=== PATIENT | male | born 1950 | race Caucasian/White ===

== ENCOUNTER 2018-12-08 22:53 | Inpatient (IN) | payer MEDICARE, OTHER ==
[~2018-12-08] VITALS: Ht 170.2 cm; Wt 68.0 kg
--- NOTE | 2018-12-08 23:04 | NUR ---
TO BED 14 [facility] FOR MEDICAL CLEARANCE. PT REPORTS SI WITH PLAN TO CUT SELF. PT STAB SELF IN RFA ON Nov. PT AAOX4 NO ACUTE DISTRESS NOTED, RESP EVEN AND UNLABORED. PT CALM AND COOPERATIVE AT THIS TIME. ER MD AT BEDSIDE TO EVAL PT. PLACE PT ON HOSPITAL GOWN, ALL BELONGIGNS REMOVED. WILL MONITOR PT CLOSELY.
[2018-12-08 23:26] LABS: BASOPHILS % (AUTO) 0.8 % (0.0-2.0); EOSINOPHILS % (AUTO) 0.9 % (0.0-6.0); HEMATOCRIT 34 % (39-51); HEMOGLOBIN 11.5 g/dL (13.5-17.5); LYMPHOCYTES # (AUTO) 0.9 /CMM (0.8-4.8); LYMPHOCYTES % (AUTO) 18.5 % (20.0-44.0); MEAN CORPUSCULAR HGB CONC 34 g/dl (31.0-36.0); MEAN CORPUSCULAR VOLUME 92 fL (80-96); MONOCYTES # (AUTO) 0.4 /CMM (0.1-1.30); MONOCYTES % (AUTO) 8.1 % (2.0-12.0); NEUTROPHILS # (AUTO) 3.6 /CMM (1.8-8.9); NEUTROPHILS % (AUTO) 71.7 % (43.0-81.0); PLATELET COUNT (AUTO) 338 /CMM (150-450); RED BLOOD CELL COUNT(AUTO) 3.68 MIL/uL (4.5-6.0)
[2018-12-08 23:32] LABS: CALCIUM, SERUM 8.5 mg/dL (8.5-10.1); CARBON DIOXIDE 24 mmol/L (21-32); CHLORIDE 99 mmol/L (98-107); CREATININE 0.9 mg/dL (0.6-1.3); GLUCOSE 123 mg/dL (74-106); POTASSIUM 4.1 mmol/L (3.5-5.1); SODIUM SERUM 134 mmol/L (136-145); UREA NITROGEN, BLOOD 11 mg/dL (7-18)
[2018-12-08 23:38] LABS: ALANINE AMINOTRANSFERASE 102 U/L (12-78); ALBUMIN 3.9 g/dL (3.4-5.0); ALKALINE PHOSPHATASE 135 U/L (46-116); ASPARTATE AMINOTRANSFERASE 26 U/L (15-37); BILIRUBIN,DIRECT 0.1 mg/dL (0.0-0.2); BILIRUBIN,TOTAL 0.4 mg/dL (0.2-1.0)
[2018-12-08 23:40] LABS: ACETAMINOPHEN 0 ug/ml (10-30); ALCOHOL, BLOOD < 3 mg/dL (0-0); SALICYLATE 1.1 mg/dL (2.8-20.0)
[2018-12-08 23:59] LABS: APPEARANCE,URINE Clear (CLEAR); BILIRUBIN,URINE Negative (NEGATIVE); BLOOD, URINE Negative Ery/uL (NEGATIVE); COLOR,URINE Yellow (YELLOW); KETONES,URINE 15 (NEGATIVE); LEUKOCYTE ESTERASE ,URINE Negative (NEGATIVE); NITRITE, URINE Negative (NEGATIVE); PROTEIN,URINE Negative (NEGATIVE); UGLUCOSE Negative (NEGATIVE); UROBILINOGEN,URINE 0.2 EU/dL (0.2)
[2018-12-09] MEDS ORDERED: METF-442 PO (00:16)
[2018-12-09] MEDS ORDERED: GLIP5TAB13 PO (00:16)
[2018-12-09] MEDS ORDERED: TERA5CAP4 PO (00:16)
[2018-12-09] MEDS ORDERED: FLUO10CA26 PO (00:16)
[2018-12-09] MEDS ORDERED: MULT1TAB73 PO (00:16)
[2018-12-09] MEDS ORDERED: ATOR20TA PO (00:16)
[2018-12-09] MEDS ORDERED: ASPI-605 PO (00:16)
[2018-12-09] MEDS ORDERED: TRAZ-182 PO (00:16)
[2018-12-09] MEDS ORDERED: BENA20TA78 PO (00:16)
[2018-12-09] MEDS ORDERED: HYDR50CA PO (00:16)
--- NOTE | 2018-12-09 00:16 | NUR ---
pt resting quietly, no acute distress noted, resp even and unlabored. call light iwthilisha reach. will continue to monitor pt closely.
[2018-12-09 00:17] LABS: BACTERIA,URINE Few /HPF (None Seen); SQUAMOUS EPITHELIAL CELL,UR Rare /HPF (None Seen); WBC,URINE 0-2 /HPF (0-3)
--- NOTE | 2018-12-09 00:56 | NUR ---
CHRISTAL RINALDIW AT BEDSIDE TO EVAL PT. PT REMAINS CALM AND COOPERATIVE AT THIS TIME.
--- NOTE | 2018-12-09 01:45 | NUR ---
ART TRUCK BENCH MECHANIC AT BEDSIDE FOR EVAL.
--- NOTE | 2018-12-09 02:11 | NUR ---
PT TRANSFERED TO [facility] VIA WHEELCHAIR.
[2018-12-09] MEDS ORDERED: MAGNESIUM HYDROXIDE 30 ML UDC PO PRN (03:00)
[2018-12-09] MEDS ORDERED: ZOLPIDEM TARTRATE 5 MG TABLET PO PRN (03:00)
[2018-12-09] MEDS ORDERED: ACETAMINOPHEN 325 MG TABLET PO PRN (03:00)
[2018-12-09] MEDS ORDERED: BLOOD SUGAR DIAGNOSTIC 1 EACH STRIP IN ONE (03:00)
[2018-12-09] MEDS ORDERED: MAG HYDROX/AL HYDROX/SIMETH 30 ML UDC PO PRN (03:00)
[2018-12-09] MEDS: LORAZEPAM 1 MG TABLET PO PRN ×2 (03:04→21:33)
[2018-12-09 03:38] VITALS: BP 112/67
--- NOTE | 2018-12-09 04:00 | NUR ---
GPS RN NOTES :RADHA AL MADE AWRE OF NEW ADMISSION MED RECON.
--- NOTE | 2018-12-09 04:04 | NUR ---
ADMISSION NOTES: ADMITTED THIS 67Y/O MALE PATIENT ADMIT FROM [facility] ER/INTIALLY FROM [facility] , PT IS ON 5150 HOLD DANGER TO SELF, AND ISOLATIVE HIM SELF FROM OTHERS AND VERBALIZEING SI , UPON FACE TO FACE ASSESSMENT PATIENT IS A&O X ,2 DISORGNIZED, DEPESSED, ANXIOUS, FEELING SI, BUT NO PLAN AT THIS TIME , UNCOOPERTIVE ,EASILY GETS AGITATED, PT. IS POOR HISTORIAN, POOR INSIGHT ,POOR JUDGEMENT , POOR HYGINE , PT. REFUSED TO TAKE SHOWER AT THIS TIME , AND PT. REFUSED TO SIGN ADMISSION PAPERS ,PT. REFUSED TO SKIN ASSESSMENT , PER PT. MY SKIN IS INTACT, AND REFUSED PICTURES, PT. V/S MD GRABIEL AWARE AND NOTIFIED OF THE ADMISSION, BELONGINGS CONTRABAND WERE DONE , NURSING ASSESSMENT DONE ,PT. RIGHTS DISCUSS BY DRY TALC RACKER , PROVIDE THE PT. WITH HANDBOOK, AND MEDICATIONS GUIDE, ENVIRONMENTAL SAFETY CHECK DONE, ENCOURAGED PT. VERBALIZED ANY FEELING CONCERN TO STAFF, ORIENT TO UNIT POLICY, NO ACUTE DISTRESS NOTED,VITAL SIGNS WNL ,DENIES ANY PAIN AT THIS TIME ,WILL CONTINUE TO MONITOR FOR Q15 SAFETY AND BEHAVIOR.
--- NOTE | 2018-12-09 04:07 | NUR ---
ADMISSION NOTES: ADMITTED THIS 68Y/O MALE, PATIENT ADMIT FROM [facility] ER/INTIALLY FROM [facility] , PT IS ON 5150 HOLD DANGER TO SELF, PT. STABBED HIMSELF MULTIPLE TIMES, PT. ENDED UP WITH LEFT WRIST MEDIAN ,RIGHT HAND, ABDOMEN ,PT. REPORT SI PAST 2 WEEKS, PLAN TO CUT HIMSELF, UPON FACE TO FACE ASSESSMENT PATIENT IS A&O X ,3 , DEPESSED, ANXIOUS, COOPERTIVE, DENIES SI /HI AT THIS TIME , PT. IS POOR HISTORIAN, POOR INSIGHT ,POOR JUDGEMENT , PT. REFUSED TO TAKE SHOWER AT THIS TIME , AND PT. REFUSED TO SIGN ADMISSION PAPERS, DUE TO MENTAL STATUS ,PT. REFUSED SKIN ASSESSMENT , PT. ALLOWED ONLY VISUAL CHECK, LEFT ARM ON CAST, RIGHT HAND AND ABDOMEN BANDAGES ON IT, BUT PT. REFUSED TO REMOVED BANDAGES DUE TO DISCOMFORTS , PER PT. I STAB MYSELF ON November, PT. ALLOWED ONLY PICTURES TAKEN WITH BANDAGES, PT. V/S WNJosi , AWARE AND NOTIFIED OF THE ADMISSION, BELONGINGS CONTRABAND WERE DONE , NURSING ASSESSMENT DONE ,PT. RIGHTS DISCUSS BY CAR GREASER , PROVIDE THE PT. WITH HANDBOOK, AND MEDICATIONS GUIDE, ENVIRONMENTAL SAFETY CHECK DONE, ENCOURAGED PT. VERBALIZED ANY FEELING CONCERN TO STAFF, ORIENT TO UNIT POLICY, NO ACUTE DISTRESS NOTED,VITAL SIGNS WNL ,DENIES ANY PAIN AT THIS TIME ,WILL CONTINUE TO MONITOR FOR Q15 SAFETY AND BEHAVIOR.
--- NOTE | 2018-12-09 05:52 | NUR ---
GPS RN NOTES: PT. REFUSED THOROUGHLY SKIN ASSESSMENT, VISUAL CHECK, PT. PERMIT PICTURES TAKEN WITH BANDAGES, WOUND CONSULT ORDERS.
--- NOTE | 2018-12-09 06:45 | NUR ---
GPS RN NOTES: PLACE CALLED OFELIA ORTIZ LEFT MESSAGES AT # [phone] .
[2018-12-09] MEDS ORDERED: ACET-868 PO (07:55)
[2018-12-09] MEDS ORDERED: MAG30ORA PO (07:55)
[2018-12-09] MEDS ORDERED: DOCU250C14 PO (07:55)
[2018-12-09] MEDS ORDERED: MAGN400O6 PO (07:55)
[2018-12-09] MEDS ORDERED: BLOO-668 IN (07:55)
[2018-12-09 08:00] VITALS: BP 129/71
--- NOTE | 2018-12-09 13:00 | NUR ---
RN NOTE: MIKAELA RUSS AWARE OF PATIENT'S ADMISSION AND WILL REVIEW MED RECON.
--- NOTE | 2018-12-09 13:14 | NUR ---
CAMILO contacted pts son Cricket [phone] for collateral information and discharge planning. Per son, he stated that pt has been hospitalized since 11/24/18 and stated that pt will be discharged to one of his brother's house and also would be interested in short term SNF placement. Per son, he stated he is not sure what caused pts depression and why he attempted suicide and stated that the only thing he could relate it to is that pt had been complaining of a lot of pain in his genital area and therefore was tired of the pain and attempted suicide. Son mentioned that this is pts first suicide attempt and the first time he has ever been in a psychiatric hospital.
[2018-12-09] MEDS: Fluoxetine 10 mg capsule PO SCH (14:21)
[2018-12-09 16:06] VITALS: BP 126/75
[2018-12-09] MEDS: METFORMIN 500 MG TABLET PO SCH (17:49)
[2018-12-09 20:31] VITALS: BP 113/66
[2018-12-09] MEDS: TRAZODONE 50 MG TABLET PO SCH (21:34)
[2018-12-09] MEDS: TERAZOSIN HCL 5 MG CAPSULE PO SCH (21:34)
[2018-12-09] MEDS: DOCUSATE SODIUM 250 MG CAPSULE PO SCH (21:34)
[2018-12-09 23:15] VITALS: BP 129/71
[2018-12-10 07:17] LABS: HEMATOCRIT 33 % (39-51); HEMOGLOBIN 11.1 g/dL (13.5-17.5); LYMPHOCYTES # (AUTO) 0.8 /CMM (0.8-4.8); LYMPHOCYTES % (AUTO) 24.4 % (20.0-44.0); MEAN CORPUSCULAR HGB CONC 34 g/dl (31.0-36.0); MEAN CORPUSCULAR VOLUME 92 fL (80-96); MONOCYTES # (AUTO) 0.3 /CMM (0.1-1.30); MONOCYTES % (AUTO) 10.4 % (2.0-12.0); NEUTROPHILS % (AUTO) 62.2 % (43.0-81.0); PLATELET COUNT (AUTO) 343 /CMM (150-450); RED BLOOD CELL COUNT(AUTO) 3.57 MIL/uL (4.5-6.0); WHITE BLOOD COUNT (AUTO) 3.3 K/uL (4.3-11.0)
[2018-12-10 07:30] LABS: CALCIUM, SERUM 8.4 mg/dL (8.5-10.1); CREATININE 0.6 mg/dL (0.6-1.3); POTASSIUM 4.2 mmol/L (3.5-5.1)
[2018-12-10 08:00] VITALS: BP 100/64
[2018-12-10] MEDS: DOCUSATE SODIUM 250 MG CAPSULE PO SCH ×2 (08:24→21:03)
[2018-12-10] MEDS: glipiZIDE 5 MG TABLET PO SCH (08:24)
[2018-12-10] MEDS: ASPIRIN EC 81 MG TABLET.DR PO SCH (08:24)
[2018-12-10] MEDS: METFORMIN 500 MG TABLET PO SCH ×2 (08:24→16:42)
[2018-12-10] MEDS: Fluoxetine 10 mg capsule PO SCH (08:24)
[2018-12-10] MEDS: MULTIVITAMINS,THERAGRAN 1 UDTAB TABLET PO SCH (08:24)
[2018-12-10] MEDS: BENAZEPRIL HCL 20 MG TABLET PO SCH (08:34)
--- NOTE | 2018-12-10 08:34 | NUR ---
RN NOTE: 0900 BP MED HELD D/T BP 100/64
--- NOTE | 2018-12-10 09:22 | NUR ---
INITIAL DISCHARGE PLAN: Patient wishes to be discharged to one of his brother's home. The address will be provided closer to discharge as pt still does not know which brother's home he will be discharging to. Per sonCricket [phone] pt will not return to his previous residence. SW will help form a safe and proper discharge in collaboration with .
[2018-12-10 09:56] LABS: ALBUMIN 3.6 g/dL (3.4-5.0); BILIRUBIN,DIRECT 0.1 mg/dL (0.0-0.2); BILIRUBIN,TOTAL 0.4 mg/dL (0.2-1.0); TOTAL PROTEIN, SERUM 6.1 g/dL (6.4-8.2)
--- NOTE | 2018-12-10 10:04 | NUR ---
WOUND CONSULT LATE ENTRY FOR 12/09/18 PATIENT WAS SEEN AND LEFT HAND/WRIST/FOREARM IN SPLINT CAST. PATIENT RIGHT HAND WITH SELF INFLICTED WOUND AND RIGHT UPPER ABDOMEN WITH SELF INFLICTED WOUND. TREATMENT RECOMMENDATIONS MADE. ALL DISCUSSED WITH NURSING AT THE BEDSIDE. PATIENT AND HIS SON DECLINED TO HAVE SURGEON CONSULT FOR THE LEFT HAND. HE AND HIS SON HAVE MADE AN APPOINT WITH HIS SURGEON AT [facility] FOR FOLLOW UP. WILL SEE PRN.
--- NOTE | 2018-12-10 10:30 | NUR ---
CAMILO received a call from pts bhavna Walker [phone] requesting discharge information, SW informed him that psychiatrist has placed discharge order for Friday12/16/18. Son asked SW if he was able to make decisions on behalf of pt regarding his discharge. SW informed son that if pt wishes for him to make decisions on behalf of him then he is able to, SW also informed him that SW nor psychiatrist can force pt to be discharged to a SNF if pt does not want to. SW informed son that pt has the right to make his own decisions. Son stated that pt wishes to be discharged to his his brother's home and also stated that he wishes to receive resources for in home support services. CAMLIO informed him that she would email him a list of resources for caregiving and home health. Son agreed. CAMILO also informed son that pt will be scheduled for a probable cause hearing which will allow pt to contest his hold, SW educated son on Probable Hearing.
--- NOTE | 2018-12-10 13:02 | NUR ---
SUPPORTIVE COUNSELING: SW met with pt and discussed his discharge plan and also discussed his sons wish to have him discharged to a SNF. Pt stated that he does not give his sons the permission to make decisions on behalf of him and that he does not want to be discharged to a SNF. Pt stated that he wants to be with his family and that he feels he would benefit more from the love of his family than being in another facility. Pt stated that he wanted SW to make it very clear to his children that he has rights and that he was able to make decisions on his own regarding his discharge and plan of care. Pt also expressed remorse and guilt surrounding his suicide attempt and stated that he would never do it again. SW educated pt on is probable cause hearing and informed him that he has the right to contest his 14 day hold. Pt stated that he feels he does not need to be here until Friday12/16/18 as denied suicidal ideation and stated that he wishes to contest his hold when the time comes. SW stated that she would inform him when his PC hearing is scheduled.
--- NOTE | 2018-12-10 15:52 | NUR ---
GROUP NOTE: SW prompted pt to participate in group session on this present day discussing "treatment compliance." Pt stated that he is complaint with his treatment and medications and that he had already spoken with psychologist Dr. Mckee and wanted to remain in his room to rest. SW provided intervention earlier today regarding pts depression and suicide attempt.
[2018-12-10 16:00] VITALS: BP 101/58
--- NOTE | 2018-12-10 16:27 | NUR ---
CAMILO emailed the following to pts son Aaron at [email or web address]: "Cruz Walker, Here are some resources that may be helpful for your Father. 1.[facility] Address: [address], [place] [address] 2.In-Home Supportive Services ([facility]) [email or web address]/[email or web address]/[email or web address]/[email or web address]/main/txclwdnd-zid-ckblbomd/xs-eukf-uuehlktkml-servi [place] 3.[facility] Address: [address] [place] [address] Hope this helps, as I mentioned earlier he does have a discharge date for November,. However, there is a strong possibility that he will be scheduled for a Probable Cause Hearing before that date and may be released earlier by the court. When a patient is hospitalized in a psychiatric hospital against his or her will, he or she is placed on a 72 hour hold ([facility] 5150). At the end of the 72 hours or any time during the 72 hours, the doctor may decide to discharge the patient, have the patient sign into the hospital as a voluntary patient, or place the patient on a 14 day hold ([facility] 5250) (which your father is currently on). The doctor may place the patient on a 14 day hold if he or she feels the patient is a danger to self, danger to others, or gravely disabled (unable to provide food, clothing or senior care) due to a mental disorder. Within the first four days of the 14 day hold, a Probable Cause Hearing is scheduled at the psychiatric facility. At the probable cause hearing, present are a Patients' Rights Advocate who is there to help the patient, me to present information on behalf of the facility, and the Mental Health Hearing Referee. It is the responsibility of the Patients' Rights Advocate to present the patient's point of view. It is the job of the advocate to attempt to gain the patient's release from the hospital if the patient desires release, even if the release may not be in the patient's best interest. This is the advocate's job no matter what they feel personally. If the Mental Health Hearing Referee determines that there is probable cause for the patient to remain in the hospital based upon one or more of the certification criteria, he or she will inform the patient of this decision and the reasons for it but if the referee does not find probable cause then he will be released on that same day if he no longer wants to be hospitalized and sign voluntary admission. I will inform you of when this hearing is scheduled and if your father wishes you and your siblings may also attend."
[2018-12-10 20:00] VITALS: BP 106/64
[2018-12-10] MEDS: TRAZODONE 50 MG TABLET PO SCH (21:03)
[2018-12-10] MEDS: TERAZOSIN HCL 5 MG CAPSULE PO SCH (21:04)
[2018-12-11 08:00] VITALS: BP 107/63
[2018-12-11] MEDS: DOCUSATE SODIUM 250 MG CAPSULE PO SCH ×2 (08:18→21:27)
[2018-12-11] MEDS: ASPIRIN EC 81 MG TABLET.DR PO SCH (08:18)
[2018-12-11] MEDS: MULTIVITAMINS,THERAGRAN 1 UDTAB TABLET PO SCH (08:18)
[2018-12-11] MEDS: glipiZIDE 5 MG TABLET PO SCH (08:18)
[2018-12-11] MEDS: Fluoxetine 10 mg capsule PO SCH (08:18)
[2018-12-11] MEDS: METFORMIN 500 MG TABLET PO SCH ×2 (08:18→16:38)
[2018-12-11] MEDS: BENAZEPRIL HCL 20 MG TABLET PO SCH (08:19)
[2018-12-11] MEDS ORDERED: NEOMY SULF/BACITRAC ZN/POLY 15 GM TUBE TP PRN (11:00)
[2018-12-11] MEDS: FLUTICASONE PROPIONATE 16 GM BOTTLE NS SCH (14:49)
--- NOTE | 2018-12-11 15:00 | NUR ---
GROUP NOTE: CAMILO prompted pt to participate in group session on this present day discussing "discharge planning." Pt stated that he wanted to stay in his room as there is a black man who has been pacing the halls and he feels anxious around him. CAMILO provided an intervention and informed pt that it was important for him to socialize with others and participate in group milieu. Pt understood but stated that he is too old to attend groups and feels safer in his room. CAMILO also informed him that he is scheduled for a PC hearing on Friday12/14/18 and asked him if she wanted his sons to attend. Pt stated that it was not necessary for them to attend as he can represent himself and make his own decisions without them.
--- NOTE | 2018-12-11 15:09 | NUR ---
CAMILO contacted pts bhavna Walker [phone] to inform him pts PC hearing is scheduled for Friday12/14/18 and mentioned that pt does not want him to attend. Son stated that pt cannot make decision on his own and that he needed to consult with him or his brothers before making decisions. SW explained that pt has rights and if he wishes for them to not be present then they cannot attend the hearing. Son stated that he will speak to pt and call SW back.
[2018-12-11 16:00] VITALS: BP 122/80
--- NOTE | 2018-12-11 16:09 | NUR ---
Pt informed SW that he wishes for his son Aaron to be present at the probable cause hearing.
--- NOTE | 2018-12-11 16:10 | NUR ---
CAMILO contacted pts bhavna Walker [phone] and left a voicemail informing him pt wishes for him to attend the PC hearing.
[2018-12-11 20:00] VITALS: BP 101/56
[2018-12-11] MEDS: TRAZODONE 50 MG TABLET PO SCH (21:27)
[2018-12-11] MEDS: TERAZOSIN HCL 5 MG CAPSULE PO SCH (21:28)
[2018-12-11] MEDS: LORAZEPAM 1 MG TABLET PO PRN (23:00)
[2018-12-12 08:00] VITALS: BP 102/73
[2018-12-12] MEDS: METFORMIN 500 MG TABLET PO SCH ×2 (08:10→16:31)
[2018-12-12] MEDS: MULTIVITAMINS,THERAGRAN 1 UDTAB TABLET PO SCH (08:10)
[2018-12-12] MEDS: glipiZIDE 5 MG TABLET PO SCH (08:10)
[2018-12-12] MEDS: Fluoxetine 10 mg capsule PO SCH (08:10)
[2018-12-12] MEDS: DOCUSATE SODIUM 250 MG CAPSULE PO SCH ×2 (08:10→21:00)
[2018-12-12] MEDS: ASPIRIN EC 81 MG TABLET.DR PO SCH (08:10)
[2018-12-12] MEDS: BENAZEPRIL HCL 20 MG TABLET PO SCH (08:11)
[2018-12-12] MEDS: FLUTICASONE PROPIONATE 16 GM BOTTLE NS SCH (08:11)
[2018-12-12 16:08] VITALS: BP 124/73
[2018-12-12 20:00] VITALS: BP 120/64
[2018-12-12] MEDS: TRAZODONE 50 MG TABLET PO SCH (21:00)
[2018-12-12] MEDS: LORAZEPAM 1 MG TABLET PO PRN (21:00)
[2018-12-12] MEDS: TERAZOSIN HCL 5 MG CAPSULE PO SCH (21:00)
[2018-12-13 08:00] VITALS: BP 106/59
[2018-12-13] MEDS: BENAZEPRIL HCL 20 MG TABLET PO SCH (08:34)
[2018-12-13] MEDS: DOCUSATE SODIUM 250 MG CAPSULE PO SCH ×2 (08:34→21:00)
[2018-12-13] MEDS: Fluoxetine 10 mg capsule PO SCH (08:34)
[2018-12-13] MEDS: METFORMIN 500 MG TABLET PO SCH ×2 (08:34→16:08)
[2018-12-13] MEDS: ASPIRIN EC 81 MG TABLET.DR PO SCH (08:34)
[2018-12-13] MEDS: MULTIVITAMINS,THERAGRAN 1 UDTAB TABLET PO SCH (08:34)
[2018-12-13] MEDS: glipiZIDE 5 MG TABLET PO SCH (08:34)
[2018-12-13] MEDS: FLUTICASONE PROPIONATE 16 GM BOTTLE NS SCH (08:35)
[2018-12-13 16:00] VITALS: BP 126/76
[2018-12-13 20:14] VITALS: BP 106/61
[2018-12-13] MEDS: LORAZEPAM 1 MG TABLET PO PRN (21:00)
[2018-12-13] MEDS: TERAZOSIN HCL 5 MG CAPSULE PO SCH (21:00)
[2018-12-13] MEDS: TRAZODONE 50 MG TABLET PO SCH (21:00)
[2018-12-14 08:00] VITALS: BP 113/75
[2018-12-14] MEDS: ASPIRIN EC 81 MG TABLET.DR PO SCH (08:29)
[2018-12-14] MEDS: glipiZIDE 5 MG TABLET PO SCH (08:29)
[2018-12-14] MEDS: BENAZEPRIL HCL 20 MG TABLET PO SCH (08:30)
[2018-12-14] MEDS: DOCUSATE SODIUM 250 MG CAPSULE PO SCH ×2 (08:30→21:36)
[2018-12-14] MEDS: Fluoxetine 10 mg capsule PO SCH (08:30)
[2018-12-14] MEDS: MULTIVITAMINS,THERAGRAN 1 UDTAB TABLET PO SCH (08:30)
[2018-12-14] MEDS: METFORMIN 500 MG TABLET PO SCH ×2 (08:30→16:05)
[2018-12-14] MEDS: FLUTICASONE PROPIONATE 16 GM BOTTLE NS SCH (08:32)
--- NOTE | 2018-12-14 14:18 | NUR ---
CAMILO contacted pts bhavna Walker [phone] and informed him the PC adult probation officer had arrived and the hearing will be held earlier. Pts son was upset and stated that he was informed that the PC hearing will be at 4:00pm CAMILO apologized and informed him that often times the adult probation officer and advocate arrived earlier, Pts son stated he would otra over to make sure he made it.
--- NOTE | 2018-12-14 15:55 | NUR ---
Group Note: SW seeked out the pt to participate in group therapy to discuss discharge planning but the pt stated that he was going to attend his PC Hearing with his son.
[2018-12-14 16:00] VITALS: BP 111/52
[2018-12-14 19:58] VITALS: BP 104/61
[2018-12-14] MEDS: LORAZEPAM 1 MG TABLET PO PRN (21:02)
[2018-12-14] MEDS: TRAZODONE 50 MG TABLET PO SCH (21:36)
[2018-12-14] MEDS: TERAZOSIN HCL 5 MG CAPSULE PO SCH (21:36)
[2018-12-15 08:00] VITALS: BP 121/66
[2018-12-15] MEDS: METFORMIN 500 MG TABLET PO SCH (08:29)
[2018-12-15 08:30] VITALS: BP 121/66
[2018-12-15] MEDS: DOCUSATE SODIUM 250 MG CAPSULE PO SCH (08:30)
[2018-12-15] MEDS: BENAZEPRIL HCL 20 MG TABLET PO SCH (08:30)
[2018-12-15] MEDS: Fluoxetine 10 mg capsule PO SCH (08:30)
[2018-12-15] MEDS: ASPIRIN EC 81 MG TABLET.DR PO SCH (08:30)
[2018-12-15] MEDS: MULTIVITAMINS,THERAGRAN 1 UDTAB TABLET PO SCH (08:31)
[2018-12-15] MEDS: glipiZIDE 5 MG TABLET PO SCH (08:31)
[2018-12-15] MEDS: FLUTICASONE PROPIONATE 16 GM BOTTLE NS SCH (08:33)
--- NOTE | 2018-12-15 09:49 | NUR ---
DISCHARGE NOTE: Pt will be discharged at 1130am via private vehicle home to [address] [place] [address]. Pts son Aaron [phone] will pick pt up and transport home. Pt denied suicidal/homicidal ideation and denied visual/auditory hallucinations. Pt has a follow up appointment at [facility] Address: [address] , [place] [address] pn 12/18/18 at 11:00am and with Ostrich Farmer: Dr. Damien Orta MD Address: [address], [place] [address] to remove his stitches on Friday12/18/18 at 3:00pm. The multidisciplinary exitcare form was done, printed, signed, and given to the patient.
--- NOTE | 2018-12-15 11:00 | NUR ---
RN NOTE SEEN BY MELY PAGAN ,UPDATED ABOUT PATIENT CONDITION.GOT ORDER FOR DISCHARGE.PATIENT AND MADE AWARE.
--- NOTE | 2018-12-15 12:00 | NUR ---
RN NOTE RECEIVED DISCHARGE ORDER AND MED RECONCILIATION FROM AND
--- NOTE | 2018-12-15 12:10 | NUR ---
Discahrge note Pt discharged at 1210 via private vehicle home to [id number] [place] [address]. son Aaron [phone] picked up patient from hospital. Pt denied suicidal/homicidal ideation and denied visual/auditory hallucinations. Pt has a follow up appointment at [facility] Address: [address] , [place] [address] pn 12/18/18 at 11:00am and with Dry Sander: Dr. Damien Orta MD Address: [address], [place] [address] to remove his stitches on Friday12/18/18 at 3:00pm. The multidisciplinary exit care done, printed, signed, and given to the patient and son.patient and son verbalized understanding.took all belongings and discharge paperwork.
== END 2018-12-15 12:10 | disposition home or self-care (01) | DRG 885 ==
LOC: ER 22:57 → GPS 12-09 01:41
PROVIDERS: ADMIT Psychiatry & Neurology Psychiatry; ATTEND Nurse Practitioner Acute Care
DX: F33.2 Major depressive disorder, recurrent severe without psychotic features (principal); E87.1 Hypo-osmolality and hyponatremia; I10 Essential (primary) hypertension; E11.42 Type 2 diabetes mellitus with diabetic polyneuropathy; D63.8 Anemia in other chronic diseases classified elsewhere; R74.0 Nonspecific elevation of levels of transaminase and lactic acid dehydrogenase [LDH]; Y93.9 Activity, unspecified; S51.812A Laceration without foreign body of left forearm, initial encounter; S61.411A Laceration without foreign body of right hand, initial encounter; K76.0 Fatty (change of) liver, not elsewhere classified; X78.1XXA Intentional self-harm by knife, initial encounter; Y92.009 Unspecified place in unspecified non-institutional (private) residence as the place of occurrence of the external cause; Z79.84 Long term (current) use of oral hypoglycemic drugs
CPT/HCPCS: 36415; 80048-TC; 80061-TC; 80076-TC; 80305; 81000-TC; 82962-TC; 85025-TC; 87081-TC; G0480